=== PATIENT | female | born 1975 | race Caucasian/White ===

== ENCOUNTER → 2016-09-10 | Outpatient (CLI) | payer MEDICAID ==
--- OUTSIDE RECORDS SUMMARY | 2016-09-10 13:55 | XMS REPORT ---
Author Author LENO NIETO Organization [employer] Address Unknown Phone Unavailable Care Team Providers Care Vitreo Retinal Surgeon Name Role Phone LENO NIETO CP Unavailable Allergies No Known Allergies Problems Problem Type Condition ICD-9 Code Onset Dates Condition Status Problem Pain in joint, pelvic region and thigh 719.45 Active Problem Depressive disorder, not elsewhere classified 311 Active Problem Lumbago 724.2 Active Problem Bariatric surgery status V45.86 Active Problem Insomnia, unspecified 780.52 Active Problem Unspecified breast screening V76.10 Active Problem Diabetes 250.00 Active Problem Essential hypertension, benign 401.1 Active Problem Generalized anxiety disorder 300.02 Active Problem Routine gynecological examination V72.31 Active Problem Unspecified menopausal and postmenopausal disorder 627.9 Active Medications No Known Medications Results No Known Results Summary Purpose [employer] Submission
--- NOTE | 2016-09-10 15:04 | Diagnostic Imaging Report ---
PROCEDURE: MR imaging of the brain without contrast. TECHNIQUE: Multiplanar, multisequence MR imaging of the brain was performed without contrast. INDICATION: Memory loss. FINDINGS: There is no diffusion restriction to suggest an acute infarct or other diffusion abnormality. The collins and white matter signal is generally normal with no significant brain edema, demyelinating lesions, or mass identified. No hydrocephalus. The central vascular flow-voids appear grossly unremarkable. The pituitary gland is normal in size. No hypothalamic or pineal region mass. The internal auditory canals and inner ear structures appear symmetric. The paranasal sinuses and the orbits appear grossly unremarkable. IMPRESSION: Unremarkable exam. Dictated by: Dictated on workstation # [id number]
== END ==
LOC: RAD 13:51
PROVIDERS: ATTEND Nurse Practitioner Family
DX: R41.3 Other amnesia (principal); R40.4 Transient alteration of awareness
CPT/HCPCS: 70551

== ENCOUNTER 2017-08-30 17:32 | Emergency (ER) | payer MEDICAID ==
[~2017-08-30] VITALS: Ht 162.6 cm; Wt 77.1 kg
--- NOTE | 2017-08-30 17:54 | ED Chest Pain ---
General Chief Complaint: Chest Pain Stated Complaint: CP Source: patient Exam Limitations: no limitations (ESTEFANÍA CORTES MD) History of Present Illness Date Seen by Provider: Aug 30, 2017 Time Seen by Provider: 17:33 Initial Comments This 42-year-old woman presents to the emergency room with primary complaint of right-sided chest pain. It is worse with exertion and sometimes is more sharp with inspiration. She identifies the area of chest pain in the right lower chest at the "kidney". She reports exposure to a grandson who had influenza recently. She was placed on Tamiflu about 5 days ago. She developed chest pain after starting the Tamiflu. She therefore stopped Tamiflu after 3 days assuming that was the cause of her symptoms. She has reported subjective fever. She was seen not long ago in urgent care setting for bilateral otitis media as well. She can't remember if she received an antibiotic. She has sensations of tachycardia and palpitations. She denies shortness of breath or cough. She has been nauseated without vomiting, diarrhea, or constipation. She states it is the chest pain that brought her in today since it has been ongoing for 5 days and did not resolve with cessation of Tamiflu. She is a smoker intermittently. Dr. Marcos is her primary care provider. (ESTEFANÍA CORTES MD) Allergies and Home Medications Allergies Coded Allergies: Penicillins (Verified Allergy, Unknown, 08/30/17) Review of Systems Constitutional: see HPI EENTM: See HPI Respiratory: See HPI Cardiovascular: See HPI Gastrointestinal: See HPI Genitourinary: See HPI Musculoskeletal: see HPI Skin: no symptoms reported Psychiatric/Neurological: No Symptoms Reported Endocrine: No Symptoms Reported (ESTEFANÍA CORTES MD) Past Gfabdgl-Axknbm-Gotcwq Hx Surgeries History of Surgeries: Yes Surgeries: Abdominal (gastric bypass), Hysterectomy (ESTEFANÍA CORTES MD) Respiratory History of Respiratory Disorde: No (ESTEFANÍA CORTES MD) Cardiovascular History of Cardiac Disorders: No (ESTEFANÍA CORTES MD) Neurological History of Neurological Disord: Yes Neurological Disorders: Neuropathy (ESTEFANÍA CORTES MD) Reproductive System : 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 (ESTEFANÍA CORTES MD) Genitourinary History of Genitourinary Disor: No (ESTEFANÍA CORTES MD) Gastrointestinal History of Gastrointestinal Di: Yes (gastric bypass) (ESTEFANÍA CORTES MD) Musculoskeletal History of Musculoskeletal Dis: No (ESTEFANÍA CORTES MD) Endocrine History of Endocrine Disorders: Yes Endocrine Disorders: Diabetes, Non-Insulin dep (ESTEFANÍA CORTES MD) HEENT History of HEENT Disorders: No (ESTEFANÍA CORTES MD) Cancer History of Cancer: No (ESTEFANÍA CORTES MD) Psychosocial History of Psychiatric Problem: No (ESTEFANÍA CORTES MD) Integumentary History of Skin or Integumenta: No (ESTEFANÍA CORTES MD) Physical Exam Vital Signs Vital Sign - Last 12Hours 08/30/17 17:35 Temp 98.6 Pulse 90 Resp 16 B/P (MAP) 147/97 (114) Pulse Ox 98 O2 Delivery Room Air (PAM CABA) Vital Signs Capillary Refill : (ESTEFANÍA CORTES MD) General Appearance: No Apparent Distress, WD/WN HEENT: PERRL/EOMI, TMs Normal, Normal ENT Inspection, Pharynx Normal Neck: Normal Inspection Respiratory: Lungs Clear, Normal Breath Sounds, No Accessory Muscle Use, No Respiratory Distress Cardiovascular: No Edema, No Murmur, Tachycardia Gastrointestinal: Normal Bowel Sounds, Non Tender, Soft Extremity: Normal Inspection, Non Tender, No Calf Tenderness, No Pedal Edema, Other (negative Carmen) Neurologic/Psychiatric: Alert, Oriented x3, No Motor/Sensory Deficits, Normal Mood/Affect, setter off II-XII Norm as Tested Skin: Normal Color, Warm/Dry (ESTEFANÍA CORTES MD) Progress/Results/Core Measures Results/Orders Lab Results Laboratory Tests Test 08/30/17 18:03 08/30/17 18:35 Range/Units White Blood Count 11.5 H 4.3-11.0 10^3/uL Red Blood Count 4.05 L 4.35-5.85 10^6/uL Hemoglobin 12.2 11.5-16.0 G/DL Hematocrit 34 L 35-52 % Mean Corpuscular Volume 83 80-99 FL Mean Corpuscular Hemoglobin 30 25-34 PG Mean Corpuscular Hemoglobin Concent 36 32-36 G/DL Red Cell Distribution Width 12.2 10.0-14.5 % Platelet Count 211 130-400 10^3/uL Mean Platelet Volume 11.0 H 7.4-10.4 FL Neutrophils (%) (Auto) 82 H 42-75 % Lymphocytes (%) (Auto) 11 L 12-44 % Monocytes (%) (Auto) 7 0-12 % Eosinophils (%) (Auto) 1 0-10 % Basophils (%) (Auto) 0 0-10 % Neutrophils # (Auto) 9.4 H 1.8-7.8 X 10^3 Lymphocytes # (Auto) 1.3 1.0-4.0 X 10^3 Monocytes # (Auto) 0.8 0.0-1.0 X 10^3 Eosinophils # (Auto) 0.1 0.0-0.3 10^3/uL Basophils # (Auto) 0.0 0.0-0.1 10^3/uL Prothrombin Time 13.5 12.2-14.7 SEC INR Comment 1.0 0.8-1.4 Activated Partial Thromboplast Time 31 24-35 SEC Sodium Level 132 L 135-145 MMOL/L Potassium Level 4.1 3.6-5.0 MMOL/L Chloride Level 98 98-107 MMOL/L Carbon Dioxide Level 24 21-32 MMOL/L Anion Gap 10 5-14 MMOL/L Blood Urea Nitrogen 10 7-18 MG/DL Creatinine 0.80 0.60-1.30 MG/DL Estimat Glomerular Filtration Rate > 60 BUN/Creatinine Ratio 13 Glucose Level 398 H 70-105 MG/DL Calcium Level 9.4 8.5-10.1 MG/DL Magnesium Level 1.8 1.8-2.4 MG/DL Total Bilirubin 0.8 0.1-1.0 MG/DL Aspartate Amino Transf (AST/SGOT) 16 5-34 U/L Alanine Aminotransferase (ALT/SGPT) 13 0-55 U/L Alkaline Phosphatase 65 40-136 U/L Myoglobin 15.3 10.0-92.0 NG/ML Troponin I < 0.30 <0.30 NG/ML Total Protein 6.9 6.4-8.2 GM/DL Albumin 3.6 3.2-4.5 GM/DL Urine Color YELLOW Urine Clarity CLEAR Urine pH 6 5-9 Urine Specific [place] 1.010 L 1.016-1.022 Urine Protein NEGATIVE NEGATIVE Urine Glucose (UA) 4+ H NEGATIVE Urine Ketones NEGATIVE NEGATIVE Urine Nitrite POSITIVE H NEGATIVE Urine Bilirubin NEGATIVE NEGATIVE Urine Urobilinogen 1 NORMAL MG/DL Urine Leukocyte Esterase 1+ H NEGATIVE Urine RBC (Auto) 1+ H NEGATIVE Urine RBC NONE /HPF Urine WBC 25-50 H /HPF Urine Squamous Epithelial Cells 5-10 /HPF Urine Crystals NONE /LPF Urine Bacteria MODERATE H /HPF Urine Casts NONE /LPF Urine Mucus NEGATIVE /LPF Urine Culture Indicated YES (PAM CABA) My Orders Orders - PAM CABA Chest Pa/Lat (2 View) (08/30/17 18:45) (PAM CABA) Medications Given in ED Current Medications Medications Dose Ordered Sig/Amparo Route Start Time Stop Time Status Last Admin Dose Admin Aspirin 324 mg ONCE ONCE PO 08/30/17 18:00 08/30/17 18:01 DC 08/30/17 19:09 324 MG (PAM CABA) Vital Signs/I&O Vital Sign - Last 12Hours 08/30/17 17:35 Temp 98.6 Pulse 90 Resp 16 B/P (MAP) 147/97 (114) Pulse Ox 98 O2 Delivery Room Air (PAM CABA) Progress Note : Progress Note Chest pain protocol was ordered for this patient. Since she is nauseated and subtly tachycardic she will also receive Zofran and a liter of IV fluids. Care of this patient is being transferred to Dr. Caba at this time. (ESTEFANÍA CORTES MD) Progress Note #1: Time: 18:41 Progress Note Saw on reviewed the history of the patient and clinical exam and agree with Dr. Jernigan's findings at this time. Strong concern for urinary tract infection versus other. We'll wait for chest x-ray. The patient has refused an IV at this time so we'll not give her any fluids or Zofran that route. Progress Note #2: Time: 19:12 Progress Note Patient appears to have a UTI which could explain a lot of her problems. Recurrent encourage her to continue to drink and start some antibiotics. (PAM CABA) ECG Initial ECG Impression Date: Aug 30, 2017 Initial ECG Impression Time: 17:48 Initial ECG Rate: 94 Initial ECG Rhythm: Normal Sinus Initial ECG Intervals: Normal Initial ECG Impression: Normal Comment Normal sinus rhythm with no ST elevation or depression. No abnormal intervals or axis deviation. (ESTEFANÍA CORTES MD) Diagnostic Imaging Diagonstic Imaging: Xray Plain Films/CT/US/NM/MRI: chest Comments No acute cardiopulmonary processes noted on a 2 view x-ray. Reviewed: Reviewed by Me (PAM CABA) Departure Impression Impression: Primary Impression: UTI (urinary tract infection) Qualified Codes: N30.00 - Acute cystitis without hematuria Disposition: HOME, SELF-CARE Condition: Stable Departure-Patient Inst. Decision time for Depature: 19:38 (PAM CABA) Referrals: LENO NIETO (PCP/Family) Primary Care Physician Patient Instructions: Acute Cystitis (DC) Add. Discharge Instructions: Drink lots of fluids use heating pads and start the antibiotics twice a day to completion. If you're not seeing some improvement by day 3 or 4 follow up with your primary care physician. For pain you can use 1000 g of Tylenol every 8 hours and/or ibuprofen 800 mg every 8 hours. All discharge instructions reviewed with patient and/or family. Voiced understanding. Scripts Sulfamethoxazole/Trimethoprim (Bactrim Ds Tablet) 1 Each Tablet 1 EACH PO BID for 5 Days, #10 TAB 0 Refills Prov: PAM CABA 08/30/17 Copy Copies To 1: JUANCHO SCHAEFFER JOSHUA T MD Aug 30, 2017 17:53 PAM CABA Aug 30, 2017 18:45
[2017-08-30] MEDS ORDERED: NS IV 1000 ML 1,000 ML IV ONE (17:55)
[2017-08-30] MEDS ORDERED: ONDANSETRON 4 MG/2 ML (SDV) Z0FRAN IVP ONE (18:00)
[2017-08-30] MEDS ORDERED: ASPIRIN 81 MG CHEW (CHILDREN'S ASA) PO ONE (18:00)
[2017-08-30 18:22] LABS: BASOPHILS % (AUTO) 0 % (0-10); EOSINOPHILS # (AUTO) 0.1 10^3/uL (0.0-0.3); EOSINOPHILS % (AUTO) 1 % (0-10); HEMATOCRIT 34 % (35-52); HEMOGLOBIN 12.2 G/DL (11.5-16.0); LYMPHOCYTES # (AUTO) 1.3 X 10^3 (1.0-4.0); LYMPHOCYTES % (AUTO) 11 % (12-44); MEAN CORPUSCULAR HEMOGLOBIN 30 PG (25-34); MEAN CORPUSCULAR HGB CONC 36 G/DL (32-36); MEAN CORPUSCULAR VOLUME 83 FL (80-99); MONOCYTES # (AUTO) 0.8 X 10^3 (0.0-1.0); MONOCYTES % (AUTO) 7 % (0-12); NEUTROPHILS # (AUTO) 9.4 X 10^3 (1.8-7.8); NEUTROPHILS % (AUTO) 82 % (42-75); PLATELET COUNT 211 10^3/uL (130-400); RED BLOOD COUNT 4.05 10^6/uL (4.35-5.85); RED CELL DISTRIBUTION WIDTH 12.2 % (10.0-14.5); WHITE BLOOD COUNT 11.5 10^3/uL (4.3-11.0)
[2017-08-30 18:31] LABS: PROTHROMBIN TIME PATIENT 13.5 SEC (12.2-14.7)
[2017-08-30 18:44] LABS: BILIRUBIN,URINE NEGATIVE (NEGATIVE); CLARITY,URINE CLEAR; COLOR,URINE YELLOW; GLUCOSE, URINE (UA) 4+ (NEGATIVE); KETONES,URINE NEGATIVE (NEGATIVE); LEUKOCYTE ESTERASE ,URINE 1+ (NEGATIVE); NITRITE,URINE POSITIVE (NEGATIVE); PH,URINE 6 (5-9); PROTEIN,URINE NEGATIVE (NEGATIVE); UROBILINOGEN,URINE 1 MG/DL (NORMAL)
[2017-08-30 18:51] LABS: BACTERIA,URINE MODERATE /HPF; WBC,URINE 25-50 /HPF
[2017-08-30 18:51] LABS: ALANINE AMINOTRANSFERASE 13 U/L (0-55); ALBUMIN 3.6 GM/DL (3.2-4.5); ALKALINE PHOSPHATASE 65 U/L (40-136); BILIRUBIN,TOTAL 0.8 MG/DL (0.1-1.0); BUN/CREATININE RATIO 13; CALCIUM 9.4 MG/DL (8.5-10.1); CARBON DIOXIDE 24 MMOL/L (21-32); CHLORIDE 98 MMOL/L (98-107); GFR ESTIMATED > 60; GLUCOSE 398 MG/DL (70-105); MAGNESIUM 1.8 MG/DL (1.8-2.4); POTASSIUM 4.1 MMOL/L (3.6-5.0); SODIUM 132 MMOL/L (135-145); TOTAL PROTEIN 6.9 GM/DL (6.4-8.2)
[2017-08-30 18:57] LABS: MYOGLOBIN SERUM 15.3 NG/ML (10.0-92.0)
[2017-08-30] MEDS ORDERED: RX-TRIMETH/SULFA. 160-800 MG (BACTRIM DS) TAB PPK#2 PO STA (19:43)
[2017-08-30] MEDS ORDERED: SULF1TAB35 PO (19:43)
[2017-08-30 19:53] VITALS: BP 147/97
--- NOTE | 2017-08-30 19:54 | Diagnostic Imaging Report ---
INDICATION: Chest discomfort with fever and chills. EXAMINATION: PA and lateral views of the chest were obtained. COMPARISON: No previous study is available for comparison. FINDINGS: Heart size and pulmonary vascularity are within normal limits. There is no pneumothorax. Left parahilar atelectasis is noted without consolidation or evidence of pleural fluid. IMPRESSION: Parahilar atelectasis without other acute abnormality detected. Dictated by: Dictated on workstation # [id number]
== END 2017-08-30 19:53 | disposition home or self-care (01) ==
LOC: EDUNIT# 17:32 → ER 17:35
DX: N39.0 Urinary tract infection, site not specified (principal); E11.40 Type 2 diabetes mellitus with diabetic neuropathy, unspecified; Z88.0 Allergy status to penicillin; Z90.710 Acquired absence of both cervix and uterus; Z98.84 Bariatric surgery status
CPT/HCPCS: 36415; 71046; 80053; 81000; 83735; 83874; 84484; 85025; 85610; 85730; 87077; 87088; 87186; 93041

== ENCOUNTER → 2018-06-04 | Outpatient (CLI) | payer MEDICAID ==
[~2018-06-04] MED LIST: SULF1TAB35 PO
[2018-06-04 08:11] LABS: BUN/CREATININE RATIO 10; CREATININE SERUM 0.69 MG/DL (0.60-1.30); GFR ESTIMATED > 60
== END ==
LOC: LAB 07:43
PROVIDERS: ATTEND Family Medicine
DX: Z01.812 Encounter for preprocedural laboratory examination (principal); E11.9 Type 2 diabetes mellitus without complications
CPT/HCPCS: 36415; 82565; 84520

== ENCOUNTER → 2018-06-05 | Outpatient (CLI) | payer MEDICAID ==
--- NOTE | 2018-06-05 09:37 | Diagnostic Imaging Report ---
PROCEDURE: CT abdomen without contrast. TECHNIQUE: Multiple contiguous axial images were obtained through the abdomen without the use of intravenous contrast. INDICATION: Upper abdominal pain. COMPARISON: No prior studies are available for comparison. FINDINGS: The lung bases are clear. No discrete liver mass is identified. There are small stones within the gallbladder. No biliary ductal dilatation is seen. The pancreas and spleen are unremarkable. No adrenal mass is identified. There are nonobstructing renal calculi. No hydronephrosis is seen. The visualized bowel loops in the upper abdomen are normal in caliber. There is no ascites. No inflammatory process is seen. There is a small fat-containing umbilical hernia. There is a focal density in the right mid breast measuring 14 mm in size. It is uncertain if this represents fibroglandular tissue versus potential mass. IMPRESSION: 1. Cholelithiasis. 2. Nonobstructing right renal calculi. 3. Small fat-containing umbilical hernia. 4. Questionable density in the right breast. Correlation with mammography would be recommended. No other significant abnormality is detected. Dictated by: Dictated on workstation # [id number]
== END ==
LOC: RAD 07:49
PROVIDERS: ATTEND Family Medicine
DX: K80.20 Calculus of gallbladder without cholecystitis without obstruction (principal); N20.0 Calculus of kidney; K42.9 Umbilical hernia without obstruction or gangrene
CPT/HCPCS: 74150

== ENCOUNTER → 2019-03-01 | Outpatient (CLI) | payer MEDICAID ==
--- NOTE | 2019-03-01 20:29 | Diagnostic Imaging Report ---
INDICATION: Palpable lump right breast. Correlation is made with prior exam from 02/06/2010. 2-D and 3-D bilateral diagnostic mammography was performed. This includes conventional CC and MLO views as well as right lateral view as well as spot compression CC and ML views. The current study was also evaluated with a Computer Aided Detection (CAD) system. 3-D tomosynthesis was also performed and reviewed. FINDINGS: Scattered fibroglandular densities are identified bilaterally. There is a spiculated mass in the lower central right breast mid depth corresponding to the palpable abnormality. No other masses or suspicious microcalcifications are seen. Axillae are unremarkable. IMPRESSION: Spiculated right breast mass at the area of palpable abnormality. Sonographic interrogation is recommended and will be performed today. ACR BI-RADS Category 0: Incomplete. (Needs additional imaging evaluation). Result letter will be mailed to the patient. Note: At least 10% of breast cancer is not imaged by mammography. Dictated by: Dictated on workstation # [id number]
--- NOTE | 2019-03-02 12:00 | Diagnostic Imaging Report ---
INDICATION: Palpable lump in the right breast. CORRELATION is made with diagnostic mammogram earlier the same day. FINDINGS: Sonographic interrogation of the area of palpable abnormality in the right breast was performed. This corresponds to the 7 o'clock location approximately 4 cm from the nipple. There is an irregular hypoechoic solid mass at this location measuring 2.0 x 1.2 x 1.6 cm. Mild internal vascularity is present. There is some mild posterior acoustic shadowing. Evaluation of the right axilla was also performed. No enlarged right axillary lymph nodes are seen. IMPRESSION: Irregular hypoechoic solid mass at the 7 o'clock location right breast, concerning for breast neoplasm. Tissue sampling is recommended. This would be amenable to ultrasound-guided core biopsy. ACR BI-RADS Category 4: Suspicious abnormality. Dictated by: Dictated on workstation # [id number]
== END ==
LOC: RAD 12:03
PROVIDERS: ATTEND Pediatrics
DX: N63.10 Unspecified lump in the right breast, unspecified quadrant (principal)
CPT/HCPCS: 76642; 77066

== ENCOUNTER → 2019-03-04 | Outpatient (CLI) | payer MEDICAID ==
[~2019-03-04] VITALS: Ht 165.1 cm; Wt 79.8 kg
[~2019-03-04] MED LIST changes: +LIDOCAINE 1% INJ 20 ML 20 ML VIAL INJ ONE
--- NOTE | 2019-03-04 18:57 | Diagnostic Imaging Report ---
INDICATION: Right breast mass. Patient was brought to the procedure room, placed on table in the supine position. Ultrasound imaging of the right breast was performed to evaluate appropriate entry site. The right breast was then prepped and draped in the usual sterile fashion. Small amount of 1% lidocaine was utilized for local anesthesia. A 14-gauge Achieve needle was advanced into the right breast. Total of 3 core biopsies were obtained of the hypoechoic irregular solid mass at the 7 o'clock location of the right breast, 4 cm from the nipple. Marker clip was then deployed. Hemostasis was obtained using manual compression. Patient tolerated the procedure well and was sent for postprocedure mammogram in satisfactory condition. IMPRESSION: Successful ultrasound-guided core biopsy of the solid mass 7 o'clock location of the right breast. Pathology results are currently pending. Dictated by: Dictated on workstation # [id number]
--- NOTE | 2019-03-04 19:44 | Diagnostic Imaging Report ---
INDICATION: Right breast mass, status post biopsy. EXAMINATION: 2D and CC and MLO views of the right breast were obtained post ultrasound-guided biopsy. FINDINGS: Images demonstrate a marker clip located within the spiculated mass in the lower aspect of the right breast at mid depth. IMPRESSION: Marker clip is located within the spiculated mass of the right breast. Dictated by: Dictated on workstation # [id number]
== END ==
LOC: RAD 12:13
PROVIDERS: ATTEND Pediatrics
DX: C50.511 Malignant neoplasm of lower-outer quadrant of right female breast (principal)
CPT/HCPCS: 19083; 88305; 88360

== ENCOUNTER 2019-08-27 09:45 | Outpatient (RCR) | payer MEDICAID ==
[~2019-08-27 09:45] MED LIST changes: -LIDOCAINE 1% INJ 20 ML 20 ML VIAL INJ ONE
== END 2019-10-12 | disposition home or self-care (01) ==
LOC: ONC 09:45
PROVIDERS: ATTEND Radiology Radiation Oncology
DX: Z51.0 Encounter for antineoplastic radiation therapy (principal); C50.911 Malignant neoplasm of unspecified site of right female breast
CPT/HCPCS: 77290; 77295; 77300; 77307; 77334; 77336; 77417; 99204

== ENCOUNTER 2020-05-25 12:53 | Outpatient (RCR) | payer MEDICAID | END 2020-07-31 | disposition home or self-care (01) | PROVIDERS: ATTEND Surgery | DX: C50.511 Malignant neoplasm of lower-outer quadrant of right female breast (principal); I89.0 Lymphedema, not elsewhere classified; I74.5 Embolism and thrombosis of iliac artery; Z17.0 Estrogen receptor positive status [ER+]; Z98.890 Other specified postprocedural states ==